=== PATIENT | male | born 1955 | race Caucasian/White ===

== ENCOUNTER 2020-02-04 00:38 | Day surgery (SDC) | payer BC, SELFPAY ==
[2020-01-30 09:04] VITALS: BMI 28.5
[2020-02-04 07:10] VITALS: BP 153/92; PULSE 76; RESP 16; TEMP 36.6; O2SAT 100; BMI 29.9
--- NOTE | 2020-02-04 07:11 | PM.HPGS ---
History of Present Illness History of Present Illness Consent: Risks, benefits, and alternatives have been discussed and questions answered. Patient agrees to proceed with procedure. 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 last EGD over 3 years ago revealing Goyal's but no dysplasia. Patient is asymptomatic 20 mg of Prilosec daily. PMFSH Past Medical History Medical History (Updated 02/04/20 @ 07:13 by Melvin Lee MD) Closed left arm fracture Dyslipidemia Social History Social History Gender identity (if verbalized by the patient): Male Meds Home Medications and Allergies Home Medications Medication Instructions Recorded Confirmed Type atorvastatin 10 mg PO DAILY 01/30/20 02/04/20 History cetirizine [Zyrtec] 10 mg PO DAILY 01/30/20 02/04/20 History fluticasone propionate [Flonase 1 spray INTRANASAL DAILY 01/30/20 02/04/20 History Allergy Relief] omeprazole 10 mg PO DAILY 01/30/20 02/04/20 History Allergies Allergy/AdvReac Type Severity Reaction Status Date / Time No Known Allergies Allergy Verified 02/04/20 06:58 Exam Const: Orientation/consciousness: patient oriented x3 Resp: Auscultation: clear to auscultation bilaterally Cardio: Rate: regular rate Rhythm: regular rhythm Heart sounds: no murmurs GI: GI Palp: Yes Soft to palpation, No Tenderness to palpation present (GI), Yes No hepatosplenomegaly present and No Palpable mass present Auscultation: normal bowel sounds Neuro: General: patient oriented x3 and no focal motor deficits Extrem: General: no pedal edema Assessment and Plan Additional Plan EGD for follow-up Goyal's metaplasia
[2020-02-04] MEDS: LACTATED RINGERS 1,000 ML 150 ML IV CONT (07:26)
--- NOTE | 2020-02-04 07:50 | WPDANESEPPF ---
Anes - Initial Pre Proc Eval Procedure: Operation Date: 02/04/20 08:00 Proposed Procedures p Esophagogastroduodenoscopy - Melvin Lee MD Date/Time: 02/04/20 07:50 Surgeon: Melvin Lee MD Pre Op Diagnosis: Goyal's Esophagus Patient Data Age: 64 Gender: M Height: 6 ft 1 in Weight: 103.1 kg Last Vital Signs Temp 97.9 F 02/04/20 07:10 Pulse 76 02/04/20 07:10 Resp 16 02/04/20 07:10 BP 153/92 H 02/04/20 07:10 Pulse Ox 100 02/04/20 07:10 Allergies Allergy/AdvReac Type Severity Reaction Status Date / Time No Known Allergies Allergy Verified 02/04/20 06:58 Home Medications Medication Instructions Recorded Confirmed Type atorvastatin 10 mg PO DAILY 01/30/20 02/04/20 History cetirizine [Zyrtec] 10 mg PO DAILY 01/30/20 02/04/20 History fluticasone propionate [Flonase 1 spray INTRANASAL DAILY 01/30/20 02/04/20 History Allergy Relief] omeprazole 10 mg PO DAILY 01/30/20 02/04/20 History Patient hx anesthesia problems: none Family hx anesthesia problems: none PMFSH Past Medical History Medical History (Updated 02/04/20 @ 07:44 by Tone Sheriff MD) Closed left arm fracture Dyslipidemia GERD (gastroesophageal reflux disease) Social History Social History Gender identity (if verbalized by the patient): Male Anes - Eval Final PreProcedure Day of Procedure 02/04/20 07:50 Patient weight: obese Heart: regular rate and rhythm Lungs: clear to auscultation Airway: Mallampati scale class II Neurological: alert and oriented Last oral intake: >/= 8 hours ASA classification: II Emergent: no Anesthetic plan: proceed Anesthesia type and monitoring: general GIVS and standard monitoring Informed Consent: The patient's anesthetic plan and its attendant risks and benefits were discussed with the patient/family/POA. Questions were solicited and answers provided to the satisfaction of the patient/family/POA.
[2020-02-04 08:16] VITALS: BP 104/69; PULSE 87; RESP 21; O2SAT 97
[2020-02-04 08:26] VITALS: BP 126/85; PULSE 74; RESP 20; O2SAT 99
[2020-02-04 08:36] VITALS: BP 132/98; PULSE 67; RESP 20; O2SAT 100
== END 2020-02-04 08:49 | disposition home or self-care (01) ==
PROVIDERS: PCP Internal Medicine; Visit Provider Internal Medicine Gastroenterology
PROC: 0DJ08ZZ Inspection of Upper Intestinal Tract, Via Natural or Artificial Opening Endoscopic (ICD-10-PCS; CPT 43235; principal; 2020-02-04 08:00)
DX: K22.70 Barrett's esophagus without dysplasia (principal); K44.9 Diaphragmatic hernia without obstruction or gangrene; K21.0 Gastro-esophageal reflux disease with esophagitis; E78.5 Hyperlipidemia, unspecified; E66.9 Obesity, unspecified; Z68.30 Body mass index [BMI] 30.0-30.9, adult
CPT/HCPCS: 43239; 88305; J2704; J7120